=== PATIENT | male | born 1985 | race African-American/Black ===

== ENCOUNTER 2017-01-27 19:39 | Emergency (ER) | payer OTHER ==
--- NOTE | ~2017-01-27 | CR72 ---
[facility] A Service of [facility] RADIOLOGY TEXT RESULTS PATIENT: MEGHANA ORTIZ LOCATION: [facility] : 81 UNIT #: [id number] AGE: [address]: Usman Bardales MD SEX: M ORDER DR: [id number] [facility] [address] [place], [place] [address] [id number] MR#: [id number] Acc #: [id number] NAME: MEGHANA ORTIZ : 1985 SEX: M STUDY DATE/TIME: 01/27/2017 19:44 UNIT: [facility] ROOM: STUDY DESCRIPTION: CR Chest Single View Portable Attending Physician: Usman Bardales M.D. Ordering Physician: Usman Bardales M.D. Primary Care Physician: Primary Care Physician No MEDICAL IMAGING REPORT This report is preliminary unless electronic signature is present EXAM Single view of the chest dated 01/27/2017 COMPARISON Chest 2 views dated 11/16/2014 HISTORY Patient was found down after smoking weed today. Mild congestion. FINDINGS Single view of the chest was obtained. A single AP portable view of the chest shows both lungs to be clear. The heart is normal in size. The mediastinal contour is normal. No significant bone abnormalities are seen. IMPRESSION Normal portable chest. Dictated by... Ladarius Burroughs M.D. THIS IS AN ELECTRONICALLY VERIFIED REPORT Ladarius Burroughs M.D. at 01/29/2017 1:44 PM CPR/to TD: 01/28/2017 13:56 JOB #: [id number] MEDICAL IMAGING REPORT Page 1 of 1 COPY
--- NOTE | ~2017-01-27 | EKG ---
PATIENT: MEGHANA ORTIZ UNIT #: [id number] Ventricular Rate: 71 BPM Atrial Rate: 71 BPM P-R Interval: 188 ms QRS Duration: 86 ms Q-T Interval: 374 ms QTC Calculation(Bezet): 406 ms P [place]: 78 degrees Calculated R [place]: 84 degrees Calculated T [place]: 54 degrees Diagnosis Line: Normal sinus rhythm Diagnosis Line: Normal ECG Diagnosis Line: When compared with ECG of 01-OCT-2016 01:13, Diagnosis Line: No significant change was found Diagnosis Line: Confirmed by JULIA TAVARES MD ([id number]) on 01/28/2017 Diagnosis Line: 7:23:16 AM INTERPRETING MD: ANUSHA GUALLPA
[~2017-01-27 19:39] MED LIST: BENZONATATE PO; DOXYCYCLINE PO; IBUPROFEN800 MG PO; NAPROSYN500 MG PO; NO MEDICATIONS; PRILOSEC PO; RONDEC-DM SYRU120 ML PO; ZITHROMAX500 MG; ZITHROMAX500 MG PO; [UNRECOGNIZED DRUG - REMARK]
[2017-01-27 19:56] LABS: BASOPHIL% 0.5 % (0-2.5); EOSINOPHIL# 0.2 X10e3 (0-0.7); EOSINOPHIL% 3.7 % (0.0-7.0); HEMATOCRIT 39.2 % (38.0-50.0); HEMOGLOBIN 12.9 gm/dL (13.0-16.0); LYMPHOCYTE# 2.3 X10e3 (1.0-3.5); LYMPHOCYTE% 34.1 % (17.0-45.0); MEAN CELL VOLUME 90.2 FL (83-96); MEAN CORPUSCULAR HEMOGLOBIN 29.7 PG (28-34); MEAN CORPUSCULAR HGB CONC 32.9 g/dL (30-36); MONOCYTE# 0.5 X10e3 (0-1.0); MONOCYTE% 7.4 % (3.0-12.0); NEUTROPHIL# 3.6 X10e3 (1.5-7.1); NEUTROPHIL% 54.3 % (40-75); PLATELET COUNT 188 X10e3 (140-420); RED BLOOD COUNT 4.34 X10e (3.90-5.60); RED CELL DISTRIBUTION WIDTH 13.4 % (11.0-15.5); WHITE BLOOD COUNT 6.6 X10e3 (4.0-10.5)
[2017-01-27 20:04] LABS: DIFF IND NO
[2017-01-27 20:06] LABS: POC - CKMB 1.8 ng/mL (0.0-7.9); POC - TROPONIN <0.05 ng/mL (<=0.05)
[2017-01-27 20:29] LABS: ALCOHOL BLOOD <5 mg/dL (0); BLOOD UREA NITROGEN 15 mg/dL (9-23); BUN/CREATININE RATIO 13.63; CALCIUM SERUM 9.6 mg/dL (8.4-10.2); CARBON DIOXIDE 30 mmol/L (22-31); CHLORIDE 106 mmol/L (100-111); CREATININE SERUM 1.1 mg/dL (0.6-1.4); GLUCOSE FASTING 87 mg/dL (70-110); POTASSIUM 4.1 mmol/L (3.5-5.1); SODIUM 141 mmol/L (135-145)
[2017-01-27 22:09] LABS: AMPHETAMINE NEG (NEG); BARBITURATES NEG (NEG); BENZODIAZEPINES NEG (NEG); COCAINE NEG (NEG); MARIJUANA NEG (NEG); OPIATES NEG (NEG); TRICYCLIC ANTIDEPRESSANTS NEG (NEG); U METHADONE NEG (NEG)
[2017-01-27 22:57] LABS: POC - CKMB 1.4 ng/mL (0.0-7.9); POC - TROPONIN <0.05 ng/mL (<=0.05)
== END 2017-01-27 23:31 | disposition home or self-care (01) ==
LOC: CED 19:39
PROVIDERS: Emergency Medicine
DX: F12.90 Cannabis use, unspecified, uncomplicated (principal); F17.200 Nicotine dependence, unspecified, uncomplicated
CPT/HCPCS: 36415; 51702; 71010; 80048; 80307; 82553; 82947; 84484; 85025; 93005; 99283; G0480